=== PATIENT | female | born 1985 | race Caucasian/White ===

== ENCOUNTER 2017-08-13 11:46 | Emergency (ER) | payer BC ==
[2017-08-13 13:36] VITALS: BP 137/78
== END 2017-08-13 13:35 | disposition home or self-care (01) ==
LOC: ED 11:46
DX: K52.9 Noninfective gastroenteritis and colitis, unspecified (principal); I10 Essential (primary) hypertension; Z88.0 Allergy status to penicillin
CPT/HCPCS: Q0162